=== PATIENT | female | born 1990 | race Caucasian/White ===

== ENCOUNTER 2018-04-11 13:37 | Emergency (ER) | payer MEDICAID, OTHER ==
--- NOTE | 2018-04-11 14:24 | ER Document Report ---
ED Medical Screen (RME) - General Chief Complaint: Abdominal Pain Stated Complaint: SHORTNESS OF BREATH Time Seen by Provider: 04/11/18 14:17 Notes: 27 years old female presents today with shortness of breath for the last few hours particularly woke up this morning. She feels like having difficulty taking a deep breath. She was diagnosed with abnormal finding with the current . She has a follow-up appointment coming that is tomorrow. Denies any abdominal cramps or bleeding. Feeling the babies movement. Denied any fever chills or other constitutional symptoms. First was induced at 36 weeks due to high blood pressure but no preeclampsia TRAVEL OUTSIDE OF THE [place] IN LAST 30 DAYS: No - Related Data Allergies/Adverse Reactions: No Known Allergies Allergy (Verified 04/11/18 13:37) Past Medical History - Immunizations Hx Diphtheria, Pertussis, Tetanus Vaccination: Yes - 09/04/15 Physical Exam - Vital signs Vitals: Temp Pulse Resp BP Pulse Ox 98.4 F 103 H 16 132/82 H 100 04/11/18 14:06 04/11/18 14:06 04/11/18 14:06 04/11/18 14:06 04/11/18 14:06 Course - Vital Signs Vital signs: Temp Pulse Resp BP Pulse Ox 98.4 F 103 H 16 132/82 H 100 04/11/18 14:06 04/11/18 14:06 04/11/18 14:06 04/11/18 14:06 04/11/18 14:06 Doctor's Discharge - Discharge Referrals: ANGY CONLEY CNM [Primary Care Provider] - Follow up as needed
--- NOTE | 2018-04-11 15:18 | ER Document Report ---
ED General - General Chief Complaint: Abdominal Pain Stated Complaint: SHORTNESS OF BREATH Time Seen by Provider: 04/11/18 14:17 Mode of Arrival: Ambulatory Information source: Patient Notes: 27-year-old female that is 33 weeks with history of gestational hypertension complaining of shortness of breath, abdominal cramping, and back pain. Shortness of breath has been on and off throughout her but reports that this morning around 6 AM she has had increased difficulty with breathing. She has tried repositioning herself without any relief of shortness of breath. She also complains of increased fatigue and dizziness associated with shortness of breath and a chest pressure in the center of her chest. She also describes increased abdominal cramping today with thick white discharge. 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 She denies recent illness, fever, headache, nausea, vomiting, extremity swelling , dysuria, vaginal bleeding. TRAVEL OUTSIDE OF THE [place] IN LAST 30 DAYS: No - HPI Onset: Other Onset/Duration: Gradual, Persistent, Worse Quality of pain: Cramping Associated symptoms: Shortness of breath. denies: Chest pain, Fever, Nausea, Vomiting Exacerbated by: Movement Relieved by: Denies Similar symptoms previously: Yes Recently seen / treated by doctor: Yes - Related Data Allergies/Adverse Reactions: No Known Allergies Allergy (Verified 04/11/18 19:27) Past Medical History - General Information source: Patient, Relative, [facility] Records - Social History Smoking Status: Former Smoker Frequency of alcohol use: None Drug Abuse: None Lives with: Spouse/Significant other Family History: Reviewed & Not Pertinent, Other - Anxiety Patient has suicidal ideation: No Patient has homicidal ideation: No - Past Medical History Cardiac Medical History: Reports: Hx Hypertension - with Renal/ Medical History: Reports: Hx Kidney Stones. Denies: Hx Peritoneal Dialysis Past Surgical History: Reports: Hx Breast Surgery - breast augmentation - Immunizations Hx Diphtheria, Pertussis, Tetanus Vaccination: Yes - 09/04/15 Review of Systems - Review of Systems Constitutional: denies: Fever EENT: denies: Throat pain Cardiovascular: Dyspnea, Dizziness. denies: Chest pain Respiratory: Short of breath Gastrointestinal: Abdominal pain Genitourinary: denies: Burning Female Genitourinary: denies: Vaginal bleeding Musculoskeletal: Back pain Skin: denies: Rash Hematologic/Lymphatic: No symptoms reported Neurological/Psychological: No symptoms reported. denies: Headaches -: Yes All other systems reviewed and negative Physical Exam - Vital signs Vitals: Temp Pulse Resp BP Pulse Ox 98.4 F 103 H 16 132/82 H 100 04/11/18 14:06 04/11/18 14:06 04/11/18 14:06 04/11/18 14:06 04/11/18 14:06 Interpretation: Tachycardic - Notes Notes: PHYSICAL EXAMINATION: GENERAL: Well-appearing, well-nourished and in no acute distress. HEAD: Atraumatic, normocephalic. EYES: Pupils equal round and reactive to light, extraocular movements intact, conjunctiva are normal. ENT: Nares patent, oropharynx clear without exudates. Moist mucous membranes. NECK: Normal range of motion, supple without lymphadenopathy LUNGS: Breath sounds clear to auscultation bilaterally and equal. No wheezes rales or rhonchi. HEART: Regular rate and rhythm without murmurs ABDOMEN: Gravid abdomen no guarding, no rebound. No masses appreciated. Female : deferred Musculoskeletal: Normal range of motion, no pitting or edema. No cyanosis. NEUROLOGICAL: Cranial nerves grossly intact. Normal speech, normal gait. Normal sensory, motor exams PSYCH: Normal mood, normal affect. SKIN: Warm, Dry, normal turgor, no rashes or lesions noted. Course - Re-evaluation Re-evalutation: Laboratory 04/11/18 04/11/18 04/11/18 15:00 15:00 15:00 WBC 8.1 RBC 3.79 Hgb 10.8 L Hct 30.8 L MCV 81 MCH 28.5 MCHC 35.1 RDW 13.6 Plt Count 181 Seg Neutrophils % 66.6 Lymphocytes % 21.5 Monocytes % 9.9 Eosinophils % 1.4 Basophils % 0.6 Absolute Neutrophils 5.4 Absolute Lymphocytes 1.7 Absolute Monocytes 0.8 Absolute Eosinophils 0.1 Absolute Basophils 0.0 D-Dimer 1.73 H Sodium 134.8 L Potassium 4.2 Chloride 105 Carbon Dioxide 23 Anion Gap 7 BUN 6 L Creatinine 0.53 Est GFR ( Amer) > 60 Est GFR (Non-Af Amer) > 60 Glucose 95 Calcium 9.1 Total Bilirubin 0.6 Direct Bilirubin 0.2 Neonat Total Bilirubin Not Reportable Neonat Direct Bilirubin Not Reportable Neonat Indirect Bili Not Reportable AST 19 ALT 12 Alkaline Phosphatase 110 Total Protein 6.8 Albumin 3.5 04/11/18 15:37 27-year-old female presents with complaints of dyspnea and abdominal cramping. Upon further questioning patient states that she does not want to be worked up for her shortness of breath because this is not new. She states that she is here to be seen by labor and delivery due to decreased movement and abdominal cramping. Patient declining imaging, lab work and EKG. Vital signs stable upon arrival. Patient is mildly tachycardic but afebrile and not hypoxic. She does not appear toxic or dehydrated. She is in no acute distress. I did contact labor and delivery who states to discharge the patient to their floor now. Patient was discharged to labor and delivery in stable condition. 04/12/18 01:47 - Vital Signs Vital signs: Temp Pulse Resp BP Pulse Ox 98.0 F 98 20 134/84 H 98 04/11/18 15:59 04/11/18 15:59 04/11/18 15:59 04/11/18 15:59 04/11/18 15:59 - Laboratory Result Diagrams: 04/11/18 15:00 04/11/18 15:00 Laboratory results interpreted by me: 04/11/18 04/11/18 04/11/18 15:00 15:00 15:00 Hgb 10.8 L Hct 30.8 L D-Dimer 1.73 H Sodium 134.8 L BUN 6 L Discharge - Discharge Clinical Impression: Tachycardia Dyspnea Qualifiers: Dyspnea type: unspecified Qualified Code(s): R06.00 - Dyspnea, unspecified Qualifiers: Weeks of gestation: 33 weeks Qualified Code(s): Z3A.33 - 33 weeks gestation of Gestational hypertension Qualifiers: Trimester: third trimester Qualified Code(s): O13.3 - Gestational [- induced] hypertension without significant proteinuria, third trimester Abdominal pain in Qualifiers: Trimester: third trimester Qualified Code(s): O26.893 - Other specified related conditions, third trimester Condition: Good Disposition: LABOR CHECK Instructions: Dyspnea, Nonspecific ([facility]), Abdominal Pain ([facility]), Dizziness ([facility]) , Pelvic Pain in ([facility]) Additional Instructions: Please go directly to labor and delivery. Forms: Elevated Blood Pressure Referrals: ANGY CONLEY CNM [CERTIFIED NURSE [employer]] - Follow up as needed
[2018-04-11 15:24] LABS: ABSOLUTE EOSINOPHILS # (AUTO) 0.1 10^3/uL (0.0-0.6); ABSOLUTE LYMPHOCYTES (AUTO) 1.7 10^3/uL (0.5-4.7); ABSOLUTE MONOCYTES (AUTO) 0.8 10^3/uL (0.1-1.4); ABSOLUTE NEUT (AUTO) 5.4 10^3/uL (1.7-8.2); BASOPHILS % (AUTO) 0.6 % (0-2); EOSINOPHILS % (AUTO) 1.4 % (0-6); HEMATOCRIT 30.8 % (36.0-47.0); HEMOGLOBIN 10.8 g/dL (12.0-15.5); LYMPHOCYTES % (AUTO) 21.5 % (13-45); MEAN CORPUSCULAR HEMOGLOBIN 28.5 pg (27.0-33.4); MEAN CORPUSCULAR HGB CONC 35.1 g/dL (32.0-36.0); MEAN CORPUSCULAR VOLUME 81 fl (80-97); MONOCYTES % (AUTO) 9.9 % (3-13); PLATELET COUNT 181 10^3/uL (150-450); RED BLOOD COUNT 3.79 10^6/uL (3.72-5.28); RED CELL DISTRIBUTION WIDTH 13.6 % (11.5-14.0); SEGMENTED NEUTROPHILS % (AUTO) 66.6 % (42-78); TOTAL CELLS COUNTED % (AUTO) 100 %; WHITE BLOOD COUNT 8.1 10^3/uL (4.0-10.5)
[2018-04-11 15:45] LABS: ALANINE AMINOTRANSFERASE 12 U/L (9-52); ALBUMIN 3.5 g/dL (3.5-5.0); ALKALINE PHOSPHATASE 110 U/L (38-126); ANION GAP 7 (5-19); ASPARTATE AMINO TRANSFERASE 19 U/L (14-36); BILIRUBIN,DIRECT 0.2 mg/dL (0.0-0.4); BILIRUBIN,TOTAL 0.6 mg/dL (0.2-1.3); BLOOD UREA NITROGEN 6 mg/dL (7-20); CALCIUM 9.1 mg/dL (8.4-10.2); CARBON DIOXIDE 23 mmol/L (22-30); CHLORIDE 105 mmol/L (98-107); GLUCOSE 95 mg/dL (75-110); POTASSIUM 4.2 mmol/L (3.6-5.0); SODIUM 134.8 mmol/L (137-145); TOTAL PROTEIN 6.8 g/dL (6.3-8.2)
[2018-04-11 16:03] VITALS: BP 134/84
== END 2018-04-11 16:02 | disposition admitted as inpatient to this hospital (09) ==
LOC: ER 13:37
DX: O13.3 Gestational [pregnancy-induced] hypertension without significant proteinuria, third trimester (principal); O26.893 Other specified pregnancy related conditions, third trimester; R00.0 Tachycardia, unspecified; R07.9 Chest pain, unspecified; R42 Dizziness and giddiness; R10.9 Unspecified abdominal pain; R06.00 Dyspnea, unspecified; Z3A.33 33 weeks gestation of pregnancy
CPT/HCPCS: 36415; 80053; 85025; 85379; 99285

== ENCOUNTER 2018-04-11 16:04 | Outpatient (CLI) | payer MEDICAID, OTHER ==
[2018-04-11 16:46] LABS: APPEARANCE,URINE CLEAR; BILIRUBIN,URINE NEGATIVE (NEGATIVE); COLOR,URINE STRAW; GLUCOSE, URINE NEGATIVE (NEGATIVE); KETONES,URINE NEGATIVE (NEGATIVE); LEUKOCYTE ESTERASE,URINE NEGATIVE (NEGATIVE); NITRITE,URINE NEGATIVE (NEGATIVE); PROTEIN,URINE NEGATIVE (NEGATIVE); URINE SPECIFIC GRAVITY 1.008; UROBILINOGEN,URINE NEGATIVE mg/dL (<2.0)
[2018-04-11] MEDS ORDERED: HYDROXYZINE PAMOATE 50 MG CAPSULE PO ONE (17:00)
[2018-04-11] MEDS ORDERED: DEXTROSE 5%-LACTATED RINGERS 1,000 ML IV PRN (17:05)
[2018-04-11] MEDS ORDERED: HYDROXYZINE PAMOATE 50 MG CAPSULE ONE (17:07)
[2018-04-11 17:09] LABS: URINE AMPHETAMINES SCREEN NEGATIVE; URINE BARBITURATES SCREEN NEGATIVE; URINE BENZODIAZEPINES SCREEN NEGATIVE; URINE COCAINE SCREEN NEGATIVE; URINE MARIJUANA (THC) SCREEN NEGATIVE; URINE METHADONE SCREEN NEGATIVE; URINE PHENCYCLIDINE SCREEN NEGATIVE
[2018-04-11] MEDS ORDERED: ONDANSETRON HCL 8 MG TABLET ONE (19:10)
--- NOTE | 2018-04-11 19:40 | Non Stress Test Report ---
Non Stress Test Datetime Report Generated by CPN: 04/11/2018 19:40 DEMOGRAPHIC EGA NST: 33.2 INDICATION Indication for Study: Ordered by Provider MONITORING Monitor Explained: Monitor Explained; Test Explained; Patient Verbalized Understanding Time on Monitor: 04/11/2018 17:09 Time off Monitor: 04/11/2018 19:18 NST Duration: 129 NST INTERVENTIONS NST Interventions: PO Hydration; IV Fluids; Meal Given; Reposition Patient Physician Notified NST: Ana BABY A: [id number] BABY A Movement : Present Contraction Frequency : irregular irritability FHR Baseline : 135 Accelerations : 15X15 Decelerations : None Variability : Moderate 6-25bpm NST Review: Meets Criteria for Reactive NST NST Review and Verified By : Twan Hatfield RN NST Results: Reactive NST REPORT Report Trigger: Send Report
[2018-04-11] MEDS ORDERED: ONDANSETRON HCL 8 MG TABLET PO ONE (20:00)
== END 2018-04-11 19:32 | disposition home or self-care (01) ==
LOC: LC 16:04
PROVIDERS: ATTEND Obstetrics & Gynecology
PROC: 4A1HXCZ Monitoring of Products of Conception, Cardiac Rate, External Approach (ICD-10-PCS; principal; 2018-04-11)
DX: O47.03 False labor before 37 completed weeks of gestation, third trimester (principal); Z3A.33 33 weeks gestation of pregnancy
CPT/HCPCS: 59025; 81001; 80307; S0119